=== PATIENT | male | born 1970 | race Caucasian/White ===

== ENCOUNTER → 2017-06-16 | Day surgery (SDC) | payer OTHER ==
[~2017-06-16] MED LIST: DESFLURANE 31 TO 60 MINUTES IH; DEXAMETHASONE SOD PHOS 20 MG/5 ML VIAL.; FAMOTIDINE 20 MG/2 ML VIAL; GLYCOPYRROLATE 1 MG/5 ML VIAL.; HYDROmorphone 2 MG/ML VIAL IV; KETOROLAC 30 MG/ML INJ FOR OR. INJ; LIDOCAINE 1% PF 2 ML VIAL. ID; LIDOCAINE 2% PF Vial for OR 5 ML VIAL.; MIDAZOLAM HCL/PF 2 MG/2 ML VIAL.; MORPHINE SULFATE 4 MG/ML DISP.SYRIN. IV; NEOSTIGMINE METHYLSULFATE 5 MG/5 ML SYRINGE.; ONDANSETRON PF 4 MG/2 ML VIAL.; ONDANSETRON PF 4 MG/2 ML VIAL. IV; PROCHLORPERAZINE 10 MG/2 ML VIAL. IV; PROPOFOL 20 ML IV; ROCURONIUM 50 MG/5 ML VIAL.; fentaNYL PF VIAL 100 MCG/2 ML VIAL; fentaNYL PF VIAL 100 MCG/2 ML VIAL IV
[2017-06-16] MEDS: IV RINGERS,LACTATED 1000ML 1,000 ML IV (06:58)
[2017-06-16] MEDS: BUPIVACAINE-EPI 0.25%-1:200000 50 ML VIAL. (08:09)
[2017-06-16] MEDS: hydrALAZINE 20 MG/ML VIAL. IVP (09:24)
[2017-06-16] MEDS: oxyCODONE/APAP 5/325 1 TAB TABLET PO (09:35)
== END | disposition home or self-care (01) ==
LOC: SURG 06:24
DX: K40.90 Unilateral inguinal hernia, without obstruction or gangrene, not specified as recurrent (principal); F98.8 Other specified behavioral and emotional disorders with onset usually occurring in childhood and adolescence; Z98.52 Vasectomy status; Z98.890 Other specified postprocedural states; Z80.8 Family history of malignant neoplasm of other organs or systems; F17.220 Nicotine dependence, chewing tobacco, uncomplicated
CPT/HCPCS: 49650; A7015; C1781; J0360; J0690; J1100; J1885; J2250; J2405; J2704; J2710; J3010; J3490; J7120; S0028